=== PATIENT | female | born 1990 | race Hispanic/Latino ===

== ENCOUNTER 2018-02-08 22:45 | Inpatient (IN) | payer MEDICAID, OTHER ==
[~2018-02-08] VITALS: Ht 165.1 cm; Wt 66.2 kg
[2018-02-08] MEDS ORDERED: TORADOL IM STA (23:34)
[2018-02-08] MEDS ORDERED: ZOFRAN ODT SL STA (23:34)
--- NOTE | 2018-02-08 23:37 | ER.PDOC ---
General Chief Complaint: Abdomen Pain Stated Complaint: VOMITING Time seen by MD: 23:35 Source: patient Exam Limitations: no limitations History of Present Illness Initial Comments Upper abdominal pain for past few days Severity/Quality: moderate Radiation: no radiation Associated Symptoms: nausea/vomiting Exacerbated by: nothing Relieved By: nothing Allergies: Coded Allergies: Penicillins (Verified Allergy, Unknown, Rash, 02/08/18) Vital Signs First Vital Signs Date Time Temp Pulse Resp B/P (MAP) Pulse Ox O2 Delivery O2 Flow Rate FiO2 02/08/18 22:59 98.2 116 16 100 Room Air 98.2 Last Vital Signs Date Time Temp Pulse Resp B/P (MAP) Pulse Ox O2 Delivery O2 Flow Rate FiO2 02/08/18 23:03 98.2 98.2 02/08/18 22:59 116 16 100 Room Air Past Medical History Surgical History: no surgical history LMP (females 10-50): this week Social History Smoking: cigarettes, less than 1 pack/day Alcohol Use: rarely Drug Use: marijuana Constitutional: no symptoms reported EENTM: no symptoms reported Respiratory: no symptoms reported Cardiovascular: no symptoms reported Gastrointestinal: see HPI Genitourinary: no symptoms reported All Other Systems: Reviewed and Negative Physical Exam General Appearance: No Apparent Distress, WD/WN HEENT: PERRL/EOMI, Normal ENT Inspection, TMs Normal, Pharynx Normal Neck: Non-Tender, Full Range of Motion, Supple, Normal Inspection Respiratory: chest non-tender, lungs clear, normal breath sounds, no respiratory distress, no accessory muscle use Cardiovascular: Normal Peripheral Pulses, Regular Rate, Rhythm, No Edema, No Gallop, No JVD, No Murmur Gastrointestinal: Normal Bowel Sounds, No Organomegaly, No Pulsatile Mass, Tenderness (upper abdomen) Back: Normal Inspection, No CVA Tenderness, No Vertebral Tenderness Extremities: Normal Range of Motion, Non-Tender, Normal Inspection, No Pedal Edema, No Calf Tenderness, Normal Capillary Refill, Pelvis Stable Neurologic/Psychiatric: retanned leather roller II-XII NML as Tested, No Motor/Sensory Deficits, Alert, Normal Mood/Affect, Oriented x 3 Skin: Normal Color, Warm/Dry Lymphatic: No Adenopathy EKG/XRAY/CT/US CT Comments: Nothing acute on CT abdomen/pelvis Course Vitals & review Data Vital Sign - Last 24 Hours 8/9/18 8/9/18 22:59 23:03 Temp 98.2 98.2 98.2 98.2 Pulse 116 Resp 16 Pulse Ox 100 O2 Delivery Room Air Departure Time of Disposition: 00:40 Disposition: 09 ADMITTED INPATIENT Impression: Primary Impression: Acute pancreatitis Condition: Stable Referrals: PCP,UNKNOWN (PCP) PRIMARY CARE PROVIDER Additional Instructions: Admitted to Dr. Fajardo Duration or Time Spent with Pa: 60 mins Problem Qualifiers Primary Impression: Acute pancreatitis Pancreatitis type: unspecified pancreatitis type Acute pancreatitis complication: unspecified Qualified Codes: K85.90 - Acute pancreatitis without necrosis or infection, unspecified SUMIT RICO MD Feb 08, 2018 23:37
[2018-02-08 23:39] LABS: BILIRUBIN,URINE NEGATIVE (NEGATIVE); UROBILINOGEN,URINE NORMAL (NEGATIVE)
[2018-02-08] MEDS ORDERED: TORADOL ONE (23:41)
[2018-02-08] MEDS ORDERED: ZOFRAN ODT ONE (23:41)
[2018-02-08 23:46] LABS: APPEARANCE,URINE CLEAR (CLEAR); UA COLOR ORANGE (YELLOW)
[2018-02-08 23:47] LABS: BASOPHIL % 0.2 % (0.0-0.2); EOSINOPHIL # 0.1 10^3/uL (0.0-0.2); EOSINOPHIL % 0.4 % (0.0-5.0); HEMOGLOBIN 14.1 g/dL (12.0-15.0); LYMPHOCYTES % 7.4 % (24.0-44.0); MEAN CELL HGB CONCENTRATION 34.6 g/dL (33-37); MEAN CORP VOLUME 92.5 fL (78-100); MEAN PLATELET VOLUME 11.1 fL (7.8-11.0); MONOCYTES % 7.5 % (5.0-12.0); NEUTROPHIL # 11.5 10^3/uL (1.8-7.7); NEUTROPHILS % 84.4 % (41.0-85.0); RED CELL DISTRIBUTION WIDTH 13.2 % (11.5-14.5); WHITE BLOOD CELL 13.6 10^3/uL (4.5-11.0)
[2018-02-09] VITALS (8 sets, daily range): BP systolic 119–143; BP diastolic 82–94
[2018-02-09 00:03] LABS: CALCIUM 9.8 mg/dL (8.4-10.5); CARBON DIOXIDE 22.9 mmol/L (20.0-32)
--- NOTE | 2018-02-09 00:26 | DIREP ---
PROCEDURE:CT ABDOMEN/PELVIS W/O CONTRAST COMPARISON:None. INDICATIONS:Upper abdominal pain TECHNIQUE:Axial images were created through the abdomen and pelvis without intravenous contrast material. No oral contrast was administered. Sagittal and coronal reconstructions were performed from source images. FINDINGS: LUNG BASES:Normal. No visible pulmonary or pleural disease. LIVER:Normal. No significant liver lesions are identified. BILIARY:Normal. No visible dilatation or calcification. PANCREAS:Normal. No lesion, fluid collection, ductal dilatation, or atrophy. SPLEEN:Normal. No enlargement or focal lesion. ADRENALS:Normal. No mass or enlargement. URINARY TRACT:Normal. No focal lesions or hydronephrosis. AORTA/VASCULAR:Normal. No aneurysm. RETROPERITONEUM:Normal. No mass or adenopathy. BOWEL/MESENTERY:Thickening of the wall of the ascending and transverse colon ABDOMINAL WALL:Normal. No mass or hernia. PELVIC ORGANS:Normal. No visible mass. Pelvic organs appropriate for patient age. BONES:Normal for age. No bony lesion or acute fracture. OTHER:Negative. CONCLUSION: 1. Thickening of the wall of the ascending and transverse colon. This may be artifactual secondary to lack of distention with contrast. However, ischemia, infection, and inflammatory bowel disease are in the differential diagnosis. 2. Normal appearing noncontrast appearance of the pancreas. No calcified gallstone Dictated by: Honorio Ling Jr. on 02/09/2018 at 00:19 AM
[2018-02-09] MEDS ORDERED: D5W-1/2 NS/KCL 20MEQ 1,000 ML IV STA (00:43)
--- NOTE | 2018-02-09 00:43 | PRM.ACF1 ---
Date and Time Date and Time Time: 00:42 Admission Criteria Forms PANCREATITIS Clinical Indications for Admission to Inpatient Care (nikolski/check or initial the applicable condition/ criteria) Admission is indicated for 1 or more of the following (1)(2)(3)(4)(5)(6)(7): [ x]I. Acute pancreatitis[A] as indicated by 2 or MORE of the following: [ ]1. Abdominal pain (eg, epigastric, left upper quadrant) [ ]2. Serum amylase or serum lipase greater than 3 times the upper limit of normal [ ]3. Characteristic findings from abdominal imaging (eg, pancreatic inflammation, pancreatic necrosis, peripancreatic fluid collection)[B] [ ]II. Pancreatitis (acute or chronic ) requiring inpatient care as indicated by 1 or more of the following [ ]1. Inability to maintain oral hydration [ ]2. Evidence of infection (eg, fever, peripancreatic abscess) [ ]A. Fever indicated by 1 or more of the following (1)(2)(3): [ ]a. Core (eg, rectal) [A] temperature greater than or equal to 100 degrees F (37.8 degrees C) in an adult [ ]b. Core (eg, rectal) [A] temperature greater than or equal to 100.4 degrees F (38 degrees C) in an child [ ]c. Oral temperature [B] greater than or equal to 99.3 degrees F (37.4 degrees C) in an adult [ ]d. Oral temperature [B] greater than or equal to 99.7 degrees F (37.6 degrees C) in a child [ ]e. Unadjusted tympanic membrane temperature [C] greater than or equal to 98.6 degrees F(37 degrees C) in an adult [ ]f. Unadjusted tympanic membrane temperature [C] greater than or equal to 99 degrees F (37.2 degrees C) in a child [ ]3. Severe pain requiring acute inpatient management as indicated by 1 or more of the following (1)(2)(3): [ ]a. Continuous or frequent (eg, every 2 to 4 hours) parenteral analgesics required[A] [ ]b. Necessity (ie, alternative approaches not effective) for analgesic regimen that can only be performed or initiated in inpatient setting [ ]4. Hemodynamic instability indicated by 1 or more of the following (1)(2)(3)(4)(5)(6)(7): [ ]a. Vital sign abnormality not readily corrected by appropriate treatment within 12 to 24 hours indicated by 1 or more of the following: [ ]i. Tachycardia that persists despite appropriate treatment (eg, volume repletion, treatment of pain, treatment of underlying cause) as indicated by 1 or more of the following (1)(2): [ ]a. Heart rate greater than 100 beats per minute in adult or child age 6 years or older [ ]b. Heart rate greater than 115 beats per minute in child 3 to 5 years of age [ ]c. Heart rate greater than 125 beats per minute in child 1 or 2 years of age [ ]d. Heart rate greater than 130 beats per minute in 6 to 11 months of age [ ]e. Heart rate greater than 150 beats per minute in infant 3 to 5 months of age [ ]f. Heart rate greater than 160 beats per minute in infant 1 or 2 months of age [ ]ii. Hypotension that persists despite appropriate treatment (eg, volume repletion, treatment of underlying cause) as indicated by ALL of the following 1 )(2)(3)(4) [ ]a. Not patient baseline (eg, healthy adult with low SBP) or intentional therapeutic goal (eg, low SBP as treatment goal in heart failure ) [ ]b. Low blood pressure as indicated by 1 or more of the following: [ ]1. New onset of SBP less than 90 mm Hg in adult or child 10 years or older [ ]2. New decrease in SBP greater than 40 mm Hg in adult or child 10 years or older [ ]3. Mean arterial pressure[A] less than 70 mm Hg in adult or child 10 years or older [ ]4. New onset of SBP less than sum of 70 mm Hg plus twice patient's age in years in child 1 to 9 years of age [ ]5. New onset of SBP less than 70 mm Hg in 1 to 11 months of age [ ]Iii. Orthostatic vital sign changes that persist despite appropriate treatment (eg, volume repletion) as indicated by 1 or more of the following (1): [ ]a. Fall in SBP of 20 mm Hg or more 1 to 3 minutes after patient sits or stands from recumbent position [ ]b. Fall in DBP of 10 mm Hg or more 1 to 3 minutes after patient sits or stands from recumbent position [ ]b. Vital sign abnormality that is severe indicated by 1 or more of the following: [ ]i. Inadequate perfusion indicated by 1 or more of the following: [ ]a. Lactic acidosis (greater than 2 mmol/L) [ ]b. Other metabolic acidosis (arterial pH less than 7.35) not otherwise explained [ ]c. New abnormal capillary refill (greater than 3 seconds) [ ]d. Reduced urine output as indicated by 1 or more of the following (1)(2): [ ]A. Urine output less than 0.5 mL/kg/hour for 6 hours in adult [ ]B. Anuria (urine output less than 0.1 mL/kg/hour) for 4 hours in any age group [ ]C. Reduced output in child as indicated by 1 or more of the following (3): [ ]1. Urine output less than 2 mL/kg/hour for 6 hours in infant younger than 2 years [ ]2. Urine output less than 1 mL/kg/hour for 6 hours in child younger than 12 years [ ]3. Urine output less than 0.75 mL/kg/hour for 6 hours in adolescent younger than 18 years [ ]e. Altered mental status indicated by 1 or more of the following (1)(2)(3)(4): [ ]A. Confusional state (eg, disorientation, difficulty following commands, deficit in attention) [ ]B. Lethargy (awake or arousable, but with drowsiness; reduced awareness of self and environment) [ ]C. Obtundation (ie, arousable with strong stimuli, lessened interest in environment, slowed responses to stimulation) [ ]D. Stupor (may be arousable but patient does not return to normal baseline level of awareness) [ ]E. Coma (not arousable) [ ]f. Myocardial Ischemia [ ]ii. Mean arterial pressure[A] less than 60 mm Hg [ ]iii. Mean arterial pressure[A] less than 70 mm Hg after 30 minutes of appropriate treatment (eg, fluid resuscitation) [ ]iv. IV inotropic or vasopressor medication required to maintain adequate blood pressure or perfusion [ ]v. Sustained heart rate greater than 120 beats per minute in adult or child 6 years or older[B] [ ]5. Hypoxemia as indicated by 1 or more of the following (1): [ ]A. Previously normal respiratory status with 1 or more of the following: [ ]i. Arterial oxygen saturation (SaO2) less than 90% or arterial partial pressure of oxygen (PO2) less than 60 mm Hg (8.0 kPa) on room air[A] [ ]ii. Oxygen required to keep SaO2 greater than 90% or PO2 greater than 60 mm Hg (8.0 kPa) [ ]B. Chronic lung disease with 1 or more of the following (2): [ ]i. New requirement for supplemental oxygen to keep SaO2 at baseline or acceptable level [ ]ii. Required supplemental oxygen performable only in acute inpatient setting [ ]6. Acute renal failure as indicated by new onset of 1 or more of the following (1)(2)(3)(4)(5)(6)(7): [ ]a. 3-fold rise in serum creatinine from baseline [ ]b. Serum creatinine greater than 4 mg/dL (354 micromoles/L) with acute rise greater than 0.5 mg/dL (44.2 micromoles/L) [ ]c. Reduction of more than 75% in estimated glomerular filtration rate from baseline. eGFR - Adult Calculator [ ]d. Estimated glomerular filtration rate less than 35 mL/min/ 1.73m2 (0.59 mL/sec/1.73m2) in child younger than 18 years. eGFR - Pediatric Calculator [ ]e. Cessation of urine output indicated by ALL of the following : [ ]i. Adequate volume status [ ]ii. Inadequate urine output as indicated by 1 or more of the following: [ ]a. Urine output less than 0.3 mL/kg/hour for 24 hours [ ]b. Anuria (urine output less than 0.1 mL/kg/hour) for 12 hours [ ]7. Severe electrolyte abnormalities indicated by ALL of the following (1)(2)(3): [ ]A. Electrolytes and associated findings are not as expected for patient baseline or acceptable treatment effects. [ ]B. Severe abnormalities indicated by 1 or more of the following: [ ]1. Sodium less than 130 mEq/L (mmol/L) (new) [ ]2. Sodium less than 135 mEq/L (mmol/L) with 1 or more of the following: [ ]i. Uncorrectable (to near normal or chronic baseline) after trial of outpatient and emergency treatment [ ]ii. Altered mental status [ ]iii. Seizures [ ]iv. Severe medical etiology requiring inpatient management (eg, heart failure, hypovolemia) [ ]3. Sodium greater than 155 mEq/L (mmol/L) [ ]4. Sodium greater than 150 mEq/L (mmol/L) with 1 or more of the following: [ ]i. Uncorrectable (to near normal or chronic baseline) with outpatient and emergency treatment [ ]ii. Altered mental status [ ]iii. Seizures [ ]iv. Severe medical etiology (eg, hypovolemia, diabetes insipidus) [ ]5. Potassium less than 2.5 mEq/L (mmol/L) despite outpatient and emergency treatment [ ]6. Potassium less than 3 mEq/L (mmol/L) with 1 or more of the following: [ ]i. Weakness [ ]ii. Cardiac abnormality (eg, arrhythmia, conduction disturbance) [ ]iii. Cardiac ischemia [ ]iv. Ileus [ ]v. Ongoing medical cause requiring inpatient management ( eg, acute renal wasting or SIADH) [ ]vi. Other severe symptoms [ ]7. Potassium greater than 6.5 mEq/L (mmol/L) [ ]8. Potassium greater than 5 mEq/L (mmol/L) with 1 or more of the following: [ ]i. Uncorrectable (to near normal or chronic baseline) with outpatient and emergency treatment [ ]ii. Severe ECG findings[A] [ ]iii. Acute worsening of renal failure (creatinine greater than 2.5 mg/dL (221 micromoles/L) or significant elevation for age and size) [ ]iv. Severe weakness [ ]v. Severe medical etiology (eg, hemolysis, infection, drug overdose) [ ]9. Calcium less than 7 mg/dL (1.75 mmol/L) despite outpatient and emergency treatment (5) [ ]10. Calcium less than 8 mg/dL (2 mmol/L) with significant symptoms or findings (eg, Altered mental status, muscle spasms, seizures, breathing difficulty, cardiac abnormality (eg, arrhythmia or conduction disturbance)) (5) [ ]11. Calcium greater than 14 mg/dL (3.5 mmol/L) (5) [ ]12. Calcium greater than 12 mg/dL (3 mmol/L) with 1 or more of the following (5): [ ]i. Uncorrectable (to near normal or chronic baseline) with outpatient and emergency treatment [ ]ii. Dehydration that is severe or persistent as indicated by 1 or more of the following (3)(6)(7)(8): [ ]A. Clinical findings of severe dehydration as indicated by 1 or more of the following: [ ]a. Acute loss of weight from baseline (5% of body weight in adults, 9% in pediatric patients) [ ]b. Hemodynamic instability [ ]c. Acute renal failure [ ]d. Serum sodium greater than 150 mEq/L (mmol/L) [ ]B. Dehydration that is persistent as indicated by ALL of the following: [ ]a. Oral rehydration therapy not tolerated or insufficient to adequately correct dehydration [ ]b. Appropriate intravenous treatment (eg, fluids) does not readily correct dehydration (ie, after 12 to 24 hours of treatment) [ ]iii. Significant symptoms or findings (eg, Altered mental status, cardiac abnormality (eg, arrhythmia, conduction disturbance), malignant etiology requiring inpatient treatment) [ ]13. Phosphorus less than 1 mg/dL (0.32 mmol/L) [ ]14. Phosphorus less than 1.5 mg/dL (0.48 mmol/L) with 1 or more of the following: [ ]i. Patient unresponsive to outpatient and emergency treatment [ ]ii. Significant symptoms or findings (eg, weakness, Altered mental status, breathing difficulty, seizures, rhabdomyolysis) [ ]15. Phosphorus greater than 10 mg/dL (3.2 mmol/L) [ ]16. Phosphorus greater than 4.5 mg/dL (1.45 mmol/L) (new) with 1 or more of the following: [ ]i. Severe medical etiology (eg, crush injury, acute renal failure) [ ]ii. Associated hypocalcemia with significant findings (eg , neurologic symptoms, Altered mental status, muscle spasms, seizures, breathing difficulty, cardiac abnormality (eg, arrhythmia, conduction disturbance)) [ ]17. Magnesium less than 1 mg/dL (0.41 mmol/L) [ ]18. Magnesium less than 1.5 mg/dL (0.62 mmol/L) with 1 or more of the following: [ ]i. Patient unresponsive to outpatient and emergency treatment [ ]ii. Associated hypocalcemia with significant findings (eg , Altered mental status, muscle spasms, seizures, breathing difficulty, cardiac abnormality (eg, arrhythmia, conduction disturbance )) [ ]iii. Associated hypokalemia (potassium less than 3 mEq/L ( mmol/L)) with risk of arrhythmia [ ]19. Magnesium greater than 4 mEq/L (2 mmol/L) [ ]20. Magnesium greater than 2.5 mEq/L (1.25 mmol/L) with significant symptoms or findings (eg, weakness, Altered mental status, cardiac abnormality (eg, arrhythmia, conduction disturbance), breathing difficulty, severe medical etiology (eg, renal failure, hypovolemia)) [ ]21. Uric acid greater than 20 mg/dL (1190 micromoles/L) (9) [ ]22. Uric acid greater than 8 mg/dL (476 micromoles/L) with significant symptoms or findings of tumor lysis syndrome (eg, creatinine greater than 1.5 times upper limit of normal, cardiac abnormality (eg, arrhythmia, conduction disturbance), seizure) (9) The original [employer] content created by [employer] has been revised. The portions of the content which have been revised are identified through the use of italic text or in bold,and [facility] has neither reviewed nor approved the modified material.All other unmodified content is copyright [facility]. Please see references footnoted in the original [employer] edition 2017 SUMIT R[place] MD Feb 09, 2018 00:43
[2018-02-09] MEDS ORDERED: D5W-1/2 NS/KCL 20MEQ 1,000 ML ONE (00:51)
[2018-02-09] MEDS ORDERED: ZOFRAN IV PRN (01:00)
--- NOTE | 2018-02-09 01:01 | NUR ---
PAIN MED PATIENT STATES SHE WANTS TO HOLD OFF ON PAIN MEDICATION
--- NOTE | 2018-02-09 01:14 | NUR ---
REPORT TO [facility] GIVEN TO AMY JUAREZ
[2018-02-09] MEDS: MORPHINE SULFATE IV PRN ×3 (01:39→09:37)
--- NOTE | 2018-02-09 01:39 | NUR ---
Morphine 3mg iv given for pain 01/09
[2018-02-09] MEDS ORDERED: LORA-447 PO (02:18)
--- NOTE | 2018-02-09 05:27 | NUR ---
Morphine 3mg iv given for pain 02/09
--- NOTE | 2018-02-09 06:52 | NUR ---
REPORT REPORT RECEIVED FROM Matthew BOSS LVN. PT RESTING IN BED ON RIGHT SIDE. PT STATES 'I WAS UNABLE TO SLEEP ALL NIGHT, THE PAIN IS GETTING BETTER NOW, BUT I THINK I AM GOING TO NEED THE DR TO ORDER MY ATIVAN THAT I TAKE AT HOME.' PT INFORMED THAT DR WOULD BE NOTIFIED WHEN HE GETS TO FLOOR. PT VERBALIZED THAT SHE WOULD BE FINE UNTIL THEN. PT DENIED ANY OTHER NEEDS OR CONCERNS. CALL LIGHT IN REACH, SIDE RAILS UP, BED IN LOWEST POSITION. WILL MONITOR.
--- NOTE | 2018-02-09 06:56 | NUR ---
REPORT TO JUDAH REYES
--- NOTE | 2018-02-09 07:51 | NUR ---
DR DR GUTIERREZ NOTIFIED OF PT HOME MED REGIMEN WHILE ON THE FLOOR.
--- NOTE | 2018-02-09 08:05 | NUR ---
US ULTRASOUND AT BEDSIDE. PT STATING PAIN IS 7/10 AND PT VERBALIZED THAT SHE KNEW SHE COULD NOT GET PAIN MEDS YET. PT DENIED ANY NEEDS OR CONCERNS AT THIS TIME. CALL LIGHT AND PERSONAL ITEMS IN REACH, SIDE RAILS UP X2, BED IN LOWEST POSITION. WILL MONITOR.
--- NOTE | 2018-02-09 09:03 | DIREP ---
PROCEDURE:US ABDOMEN LIMITED(SINGLE ORGAN-QUAD) COMPARISON:[facility], CT, CT ABD/PELVIS W/O, 02/08/2018, 11:41 PM. INDICATIONS:Pancreatitis FINDINGS: PANCREAS:Head: 2.1 cm; Body: 0.8 cm; Tail: 1.8 cm CBD:0.2 cm GALLBLADDER:0.2 cm RIGHT KIDNEY:10.0 x 4.9 x 4.9 cm PANCREAS:Normal pancreas. LIVER:Normal hepatic parenchymal architecture. No focal hepatic lesion is identified. Normal directional flow in the portal vein. GALLBLADDER:Normal appearing gallbladder without evidence for gallbladder wall thickening or pericholecystic fluid. BILIARY:There is no biliary ductal dilatation. RIGHT KIDNEY:Normal. No hydronephrosis. OTHER:Negative. No ascites is identified. CONCLUSION:Normal examination Dictated by: HPRA Physician on 02/09/2018 at 08:35 AM ld
[2018-02-09] MEDS: ATIVAN PO SCH ×2 (09:36→20:07)
--- NOTE | 2018-02-09 09:47 | NUR ---
DR DR. GUTIERREZ AT BEDSIDE UPDATING PT ON POC. DR GUTIERREZ CHANGING DIET TO CLEAR LIQUIDS AT THIS TIME. DR GUTIERREZ STATES THAT PT CAN BE SL TO AMBULATE IN THE GUTIERREZ, AND PT VERBALIZED THAT SHE WOULD NOT GO OUTSIDE TO SMOKE. WILL MONITOR.
--- NOTE | 2018-02-09 10:00 | NUR ---
DISCHARGE PLAN CASE MANAGEMENT VISITED WITH PT ABOUT DISCHARGE NEED AND PLAN. LIVES AT HOME WITH ROOMMATE IN [place]. DOES NOT HAVE CHILDREN OR DEPENDENTS. WORKS FOR [employer] IN [place] A [employer]. INDEPENDENT OF ADLS. ANNIKA BRADLEY ALSO SPOKE WITH PT IN REGARDS TO INSURANCE CONCERNS. CONTACT INFORMATION PROVIDED FOR PT FOR CASE MANAGEMENT AND BUSINESS OFFICE GIVEN IF NEEDED AFTER DISCHARGE. FATHER LIVES IN [place]. DISCHARGE GOAL IS TO DISCHARGE TO FATHER'S HOME IN [place] FOR A FEW DAYS BEFORE DRIVING SELF BACK TO [place]. WILL CONTINUE TO FOLLOW DISCHARGE NEEDS.
--- NOTE | 2018-02-09 10:14 | NUR ---
HIDA SCAN INFORMED BY DR GUTIERREZ THAT PT WILL HAVE HIDA SCAN PERFORMED. PT CAN NOT HAVE ANY PAIN MEDICATIONS AND WILL REMAIN NPO.
[2018-02-09 10:25] LABS: BASOPHIL % 0.2 % (0.0-0.2); EOSINOPHIL # 0.4 10^3/uL (0.0-0.2); EOSINOPHIL % 4.1 % (0.0-5.0); HEMOGLOBIN 13.2 g/dL (12.0-15.0); LYMPHOCYTES # 3.3 10^3/uL (1.0-4.8); LYMPHOCYTES % 33.1 % (24.0-44.0); MEAN CELL HGB 32.4 pg (26-34); MEAN CELL HGB CONCENTRATION 34.3 g/dL (33-37); MEAN CORP VOLUME 94.4 fL (78-100); MONOCYTES % 10.4 % (5.0-12.0); NEUTROPHIL # 5.2 10^3/uL (1.8-7.7); RED CELL DISTRIBUTION WIDTH 13.3 % (11.5-14.5)
[2018-02-09] MEDS ORDERED: TYLENOL PO PRN (10:30)
--- NOTE | 2018-02-09 10:30 | NUR ---
NPO PT INFORMED OF NPO STATUS AND THAT SHE CAN NOT HAVE ICE CHIPS. PT ALSO INFORMED THAT SHE CAN NOT HAVE PAIN MEDICATION UNTIL AFTER THE SCAN HAS BEEN COMPLETED. WILL MONITOR.
--- NOTE | 2018-02-09 11:00 | NUR ---
AMBULATING PT AMBULATING IN HALLWAY AT THIS TIME. PT OFF THE UNIT TO GO TO [facility] TO VISIT WITH HER FATHER. IV SALINE LOCKED BY Fercho MCDONALD CNA. WILL MONITOR.
--- NOTE | 2018-02-09 11:54 | NUR ---
DR BRENDA GUTIERREZ INFORMED THAT PT REQUESTING NICOTINE PATCH. DR GUTIERREZ ORDERED NICOTINE PATCH 14 G, QDAILY.
[2018-02-09] MEDS: NICOTINE 14MG PATCH TD SCH (12:13)
--- NOTE | 2018-02-09 12:13 | NUR ---
PATCH NICOTINE PATCH APPLIED TO PT LEFT UPPER BACK. PT VERBALIZED UNDERSTANDING OF MEDICATION AND USE. PT DENIED ANY NEEDS OR CONCERNS AT THIS TIME. PT REMAINS NPO FOR PROCEDURE. CALL LIGHT AND PERSONAL ITEMS IN REACH, SIDE RAILS UP X2, BED IN LOWEST POSITION. WILL MONITOR.
--- NOTE | 2018-02-09 12:53 | NUR ---
RADIOLOGY PT OFF UNIT WITH RADIOLOGY VIA WHEELCHAIR. PT IV SALINE LOCKED. WILL MONITOR FOR RETURN.
--- NOTE | 2018-02-09 15:16 | NUR ---
BACK TO FLOOR PT BACK TO ROOM FROM RADIOLOGY. PT C/O OF NAUSEA AND PAIN IN THE EPIGASTRIC AREA. PT INFORMED THAT IT IS TIME FOR PAIN MEDICATION AND NAUSEA MEDICATION. SEE EMAR.
[2018-02-09] MEDS: DILAUDID IV PRN (15:26)
[2018-02-09] MEDS: ZOFRAN IV PRN (15:26)
--- NOTE | 2018-02-09 15:26 | NUR ---
MEDICATION PRN NAUSEA AND PAIN MEDIATION GIVEN, SEE EMAR. PT STATES THAT SHE VOIDED AND VOMITED WHILE NURSE PULLING MEDS. PT VERBALIZED UNDERSTANDING OF MEDICATIONS BEING GIVEN. PT DENIED ANY OTHER NEEDS OR CONCERNS. CALL LIGHT AND PERSONAL ITEMS IN REACH. BED IN LOWEST POSITION, SIDE RAILS UP X2. WILL MONITOR.
--- NOTE | 2018-02-09 15:36 | DIREP ---
PROCEDURE:NM GALLBLADDER SCAN/SWANN COMPARISON:None. INDICATIONS:Pancreatitis TECHNIQUE:After obtaining the patient's consent, radiopharmaceutical was injected and images obtained sequentially for one hour. PHARMACEUTICAL(S):6.3 mCi Tc-99m MAURO derivative. FINDINGS: LIVER:Normal. BILIARY DUCTS:Normal. Visualized at 10 minutes. GALLBLADDER:Normal. Visualized at 25 minutes INTESTINE:Normal. Visualized at 60 minutes EJECTION FRACTION:45 %. Normal is greater than 50% at 15-20 minutes, EF between 35%-50% is equivocal. 8 oz of Ensure Plus was administered, resulting in mild cramping and severe nausea CONCLUSION:No evidence of cystic or common bile duct obstruction. Borderline ejection fraction Dictated by: Honorio Lares MD on 02/09/2018 at 03:28 PM
--- NOTE | 2018-02-09 17:07 | NUR ---
AMBULATING PT AMBULATING OFF THE UNIT WITH FAMILY AT THIS TIME.
--- NOTE | 2018-02-09 18:45 | NUR ---
Report Received report from Yamini Sinclair LVN
[2018-02-09] MEDS: NORCO 5MG PO PRN ×2 (20:07→23:53)
--- NOTE | 2018-02-09 22:33 | HPH ---
ADMIT DATE: 02/09/2018 CHIEF COMPLAINT: Abdominal pain. HISTORY OF PRESENT ILLNESS: The patient is a 27-year-old woman with a past medical history significant for tobacco abuse, occasional marijuana use and alcohol use, who recently came down here from [place]. She is complaining over the last couple of days, some upper abdominal pain. She complains of some vomiting. She denied any diarrhea. She denied any fever or chills. She has not been on recent antibiotics. Initial workup in ER per ER physician report there was concern for gallstones. There was no evidence of gallbladder disease on CT. She did have a history of worsening nausea and some pain when eating. She states she had a gallbladder problem when she was 5 years old and again at 15 years old. PAST MEDICAL HISTORY: Includes tobacco abuse, marijuana use, occasional alcohol use, anxiety disorder. PAST SURGICAL HISTORY: She denies any surgeries. ALLERGIES: States she is allergic to PENICILLIN. HOME MEDICATION LIST: Only includes Ativan 0.5 mg twice a day. SOCIAL HISTORY: She lives in [place], lives at home, has a positive marijuana, alcohol and tobacco use history. FAMILY HISTORY: Negative for early coronary artery disease or diabetes. REVIEW OF SYSTEMS: CARDIAC: Denies chest pain or shortness of breath. PULMONARY: No cough, sputum production or pleuritic chest pain. GASTROINTESTINAL: Positive for some nausea, abdominal pain and some vomiting. No diarrhea or constipation. All else negative in 10 point review of system except as in HPI. PHYSICAL EXAMINATION: VITAL SIGNS: Upon arrival to the ER, height 165.1 cm, weight 66.2 kilograms, temperature 98.2, pulse 79, respiratory rate 16, blood pressure 133/87, O2 saturation 99% on room air. GENERAL: She is alert, in no acute distress at time of exam. HEENT: Pupils equal, round and reactive to light. Sclerae are anicteric. Oropharynx is clear. Mucous membranes are moist. NECK: Supple, no lymphadenopathy. CARDIOVASCULAR: At time of exam is regular rate and rhythm. LUNGS: Clear bilaterally. No wheezing. ABDOMEN: Soft. Bowel sounds are present. She is tender to palpation in left lower quadrant and right upper quadrant. No rebound or guarding. EXTREMITIES: No cyanosis, clubbing or edema. NEUROLOGIC: Grossly nonfocal. LABORATORY DATA: CBC: White count 13.6, hemoglobin 14.1, platelets 231. Differential: 84% neutrophils, 7% lymphocytes, 7% monocytes. Sodium 136, potassium 3.0, chloride 99, CO2 is 23, BUN is 10, creatinine is 1, glucose 106, calcium is 9.8, total bilirubin is 1.9, AST 28, ALT is 47, alkaline phosphatase 73, total protein 8.4, albumin is 4.4, lipase of 3679. IMAGING STUDIES: CT abdomen and pelvis did reveal some thickening of the ascending and transverse colon, which may be due to poor distention, but she had also had an abdominal ultrasound, which did not reveal any significant abnormalities. HIDA scan was performed, which did show a slightly reduced ejection fraction of 45%. ASSESSMENT AND PLAN: The patient is a 27-year-old woman here with likely gallbladder disease, gallbladder induced pancreatitis with biliary dyskinesia, history of alcohol, tobacco and marijuana use. 1. We will give IV fluid hydration, appropriate p.r.n. pain and nausea medications. We will start on clear liquid diet. Surgery consult depending on resolution of her pancreatitis. We will consult General Surgery for assessment. 2. Appropriate p.r.n. pain and nausea medication. 3. Encourage ambulation. 4. DVT prophylaxis will be with Lovenox. 5. Broadband Engineer on smoking cessation. Nicotine patch ordered. Time spent on 02/09/2018 is 45 minutes. This plan was discussed with the patient. She is her own decision maker. She does understand and concur with plans. Leno Fajardo MD DR: ANNE MARIE/robert JOB# [id number] ANDRE
[2018-02-10 00:01] VITALS: BP 129/83
[2018-02-10 04:10] VITALS: BP 129/96
[2018-02-10] MEDS: NORCO 5MG PO PRN ×2 (04:30→09:10)
[2018-02-10 05:14] LABS: BASOPHIL % 0.3 % (0.0-0.2); EOSINOPHIL # 0.7 10^3/uL (0.0-0.2); EOSINOPHIL % 7.6 % (0.0-5.0); HEMOGLOBIN 13.1 g/dL (12.0-15.0); LYMPHOCYTES # 2.1 10^3/uL (1.0-4.8); LYMPHOCYTES % 23.8 % (24.0-44.0); MEAN CELL HGB 32.3 pg (26-34); MEAN CELL HGB CONCENTRATION 33.4 g/dL (33-37); MEAN CORP VOLUME 96.6 fL (78-100); MEAN PLATELET VOLUME 11.5 fL (7.8-11.0); MONOCYTES # 0.6 10^3/uL (0.3-0.8); MONOCYTES % 7.3 % (5.0-12.0); NEUTROPHIL # 5.3 10^3/uL (1.8-7.7); NEUTROPHILS % 60.9 % (41.0-85.0); RED CELL DISTRIBUTION WIDTH 13.3 % (11.5-14.5); WHITE BLOOD CELL 8.7 10^3/uL (4.5-11.0)
[2018-02-10 06:04] LABS: CALCIUM 8.8 mg/dL (8.4-10.5); CARBON DIOXIDE 23.2 mmol/L (20.0-32)
--- NOTE | 2018-02-10 06:54 | NUR ---
Report Report given to Marilee Sharp RN
[2018-02-10] MEDS: ATIVAN PO SCH ×2 (09:09→20:33)
[2018-02-10] MEDS: NICOTINE 14MG PATCH TD SCH (09:11)
[2018-02-10] MEDS: LOVENOX SQ SCH (09:11)
[2018-02-10 09:24] VITALS: BP 125/86
[2018-02-10] MEDS: ZOFRAN IV PRN ×2 (10:36→20:33)
[2018-02-10] MEDS: DILAUDID IV PRN ×3 (10:37→20:08)
--- NOTE | 2018-02-10 10:49 | NUR ---
Report Assumed care of patient after bedside report received from Jojo CALIX. Patient sleeping left side upon first contact. C/O abdominal pain, no signicant relief with oral pain medication. This RN gave patient IV dose of dilaudid and Zofran, with better results, as evidenced by patient able to rest. Alert and oriented, able to make her needs known. Abdomen pain worse with PO intake. Currently patient is NPO per DR. Fajardo, until surgeon sees patient.
[2018-02-10 12:00] VITALS: BP 140/98
[2018-02-10 16:20] VITALS: BP 138/98
--- NOTE | 2018-02-10 18:18 | PRM.CONS ---
Consultation Reason for Consult: Reason for Consultation: Abdominal pain History of Present Illness History of Patient Comments The patient is a 27 year old female admitted over the weekend for upper abdominal pain. Patient lives in [place] and is visiting some one in the area. She says that her first attack of pancreatitis was at the age of 5. Then she had an attack at the age of [age]. This is at least her 3rd attack. She is unable to recall any work up that was done in the past. She thinks that with her attack of pancreatitis at the age of 15, she was told that she had a stone blocking the tube. But there is no documentation of it since it was such a long time ago. Today her pain is less severe and she is tolerating clear liquids. She is still requiring pain medications but less. Objective Vitals and I/O Vital Sign - Last 24 Hours 02/09/18 02/09/18 02/10/18 02/10/18 20:16 20:55 00:01 04:10 Temp 98.6 98.4 98.1 98.6 98.4 98.1 Pulse 78 77 72 Resp 18 18 18 B/P (MAP) 138/94 (109) 129/83 (98) 129/96 (107) Pulse Ox 99 100 99 O2 Delivery Room Air Room Air Room Air Room Air 02/10/18 02/10/18 02/10/18 02/10/18 09:21 09:24 12:00 16:20 Temp 98.3 97.2 98.2 98.3 97.2 98.2 Pulse 77 89 111 Resp 16 16 20 B/P (MAP) 125/86 (99) 140/98 (112) 138/98 (111) Pulse Ox 100 100 100 O2 Delivery Room Air Room Air Room Air Room Air Intake and Output 02/09/18 02/09/18 02/10/18 15:00 23:00 07:00 Intake Total 595 ml 240 ml 220 ml Output Total 100 ml Balance 495 ml 240 ml 220 ml General: Alert, Oriented X3, Cooperative, mild distress HEENT: Mucous membr. moist/pink Neck: Supple, No thyromegaly Lungs: Normal air movement Heart: Regular rate Abdomen: Soft Extremities: No clubbing Skin: No rashes Neuro: Normal gait Psych/Mental Status: Mental status NL Medication Reconciliation Scheduled Lorazepam (Ativan), 0.5 MG PO BID, (Reported) Subjective Subjective Date: Feb 10, 2018 Time: 17:30 Subjective Past history is significant for ETOH and marijuana use. Patient History: FH: cirrhosis 33 FATHER VTE VTE Risk Total Score: 0 VTE Risk Score VTE Risk: Score 0-1 = Low Risk (Aggressive mobilization; early ambulation; no VTE prophylaxis required) Score 2: Moderate Risk (Intermittent/Pneumatic Compression Device OR Lovenox/Heparin/Coumadin) Score 3-4: High Risk (Intermittent/Pneumatic Compression Device AND Lovenox/Heparin/Coumadin) Score > or =5: Highest Risk (Intermittent/Pneumatic Compression Device AND Lovenox/Heparin/Coumadin) Antico:Hep/LMWH/Coum/Xarelto: Yes Mechanical device ordered: No Plan Assessment Acute pancreatitis-mild [place] criteria [address] CT shows normal pancreas US no gallstones HIDA scan 45% EF Plan 1) Non-operative management. 2) Due to long history dating childhood, it might be a consideration to do ERCP or MRCP as an outpatient to look at anatomy of the pancreatic head (annular pancreas) or ductal anomaly. 3) Clear liquid diet. 4) OK to discharge when tolerating PO and pain under control with oral meds. 5) Avoid ETOH and fatty food. PAIGE STUART MD Feb 10, 2018 18:18
--- NOTE | 2018-02-10 19:09 | NUR ---
Report Received report from Tiffanie Rao
[2018-02-10 20:32] VITALS: BP 147/105
[2018-02-11] VITALS (7 sets, daily range): BP systolic 120–154; BP diastolic 88–110
[2018-02-11] MEDS: DILAUDID IV PRN ×5 (00:36→21:19)
--- NOTE | 2018-02-11 08:03 | PRM.PN ---
Progress Note Subjective Date: Feb 11, 2018 Time: 08:00 Physician Notes: s/p acute pancreatitis. Feels a little better. Had some pain last night. Needed pain medication. Tolerating clear liquids. Objective Review IO, Exams,& Results Problems Acute/Active Problems: (1) Acute pancreatitis Vital Signs Date Time Temp Pulse Resp B/P (MAP) Pulse Ox O2 Delivery O2 Flow Rate FiO2 02/11/18 07:29 98.1 83 16 136/93 (107) 100 Room Air 98.1 Intake and Output 02/11/18 07:00 Intake Total 120 ml Balance 120 ml Intake Oral 120 ml # Voids 2 Laboratory Tests Test 02/09/18 10:17 02/10/18 04:52 White Blood Count 10.0 10^3/uL 8.7 10^3/uL Red Blood Count 4.08 10^6/uL 4.06 10^6/uL Hemoglobin 13.2 g/dL 13.1 g/dL Hematocrit 38.5 % 39.2 % Mean Corpuscular Volume 94.4 fL 96.6 fL Mean Corpuscular Hemoglobin 32.4 pg 32.3 pg Mean Corpuscular Hemoglobin Concent 34.3 g/dL 33.4 g/dL Red Cell Distribution Width 13.3 % 13.3 % Platelet Count 215 10^3/uL 211 10^3/uL Mean Platelet Volume 11.0 fL 11.5 fL Neutrophils (%) (Auto) 52.0 % 60.9 % Lymphocytes (%) (Auto) 33.1 % 23.8 % Monocytes (%) (Auto) 10.4 % 7.3 % Neutrophils # (Auto) 5.2 10^3/uL 5.3 10^3/uL Lymphocytes # (Auto) 3.3 10^3/uL 2.1 10^3/uL Monocytes # (Auto) 1.0 10^3/uL 0.6 10^3/uL Absolute Immature Granulocyte (auto 0.02 10^3 u/L 0.01 10^3 u/L Eosinophils % 4.1 % 7.6 % Basophils % 0.2 % 0.3 % Basophils # 0.0 10^3/uL 0.0 10^3/uL Eosinophil Count 0.4 10^3/uL 0.7 10^3/uL Total Bilirubin 1.6 mg/dL 1.3 mg/dL Direct Bilirubin 0.30 mg/dL Indirect Bilirubin 1.30 Aspartate Amino Transf (AST/SGOT) 31 U/L 123 U/L Alanine Aminotransferase (ALT/SGPT) 44 U/L 130 U/L Alkaline Phosphatase 56 U/L 54 U/L Total Protein 7.1 g/dL 6.8 g/dL Albumin 3.6 g/dL 3.4 g/dL Amylase Level 300 U/L Lipase 2250 U/L 1236 U/L Percent Immature Gran (Cell Imm) 0.20 % 0.10 % Sodium Level 138 mmol/L Potassium Level 3.5 mmol/L Chloride Level 104.0 mmol/L Carbon Dioxide Level 23.2 mmol/L Anion Gap 14.3 Blood Urea Nitrogen 7 mg/dL Creatinine 0.87 mg/dL Estimated GFR () 93.1 BUN/Creatinine Ratio 8.0 Glucose Level 86 mg/dL Calcium Level 8.8 mg/dL Globulin 3.4 Current Medications Medications (Trade) Dose Ordered Sig/Hanane PRN Reason Start Time Stop Time Status Last Admin Acetaminophen (Tylenol) 1,000 mg Q6H PRN PAIN MILD 02/09/18 10:30 03/11/18 10:29 Acetaminophen/ Hydrocodone Bitart ([place] 5mg) 1 ea Q4H PRN PAIN 02/09/18 10:30 03/11/18 10:29 02/10/18 09:10 Enoxaparin Sodium (Lovenox) 40 mg DAILY 02/10/18 09:00 03/12/18 08:59 02/10/18 09:11 Hydromorphone HCl (Dilaudid) 0.5 mg Q4H PRN PAIN SEVERE 02/09/18 10:30 03/11/18 10:29 02/11/18 05:52 Lorazepam (Ativan) 0.5 mg BID 02/09/18 09:00 03/11/18 08:59 02/10/18 20:33 Nicotine (Nicotine 14mg Patch) 1 each DAILY 02/09/18 12:30 03/11/18 12:29 02/10/18 09:11 Ondansetron HCl (Zofran) 4 mg Q4H PRN NAUSEA / VOMITING 02/09/18 10:30 03/11/18 10:29 02/10/18 20:33 Heart: Regular rate Abdomen: Soft, Other (Mild upper abdominal tenderness. ) Lungs: Normal air movement Skin: No rashes Assessment & Plan: Assessment Resolving pancreatitis. Plan Follow labs. Stay on clear liquids. OK to advance if pain is less. PAIGE STUART MD Feb 11, 2018 08:03
[2018-02-11] MEDS: ATIVAN PO SCH ×2 (09:21→21:04)
[2018-02-11] MEDS: NICOTINE 14MG PATCH TD SCH (09:22)
[2018-02-11] MEDS: LOVENOX SQ SCH (09:25)
--- NOTE | 2018-02-11 10:03 | NUR ---
Assumed care Assumed care of patient after report received from Jojo CALIX, at shift change. Alert and oriented, able to make her needs known. Patient ambulated out of her room. Patient states, "I feel better." Patient noted to tolerate clear liquids. See assessment as documented.
[2018-02-11] MEDS: ZOFRAN IV PRN (14:37)
--- NOTE | 2018-02-11 18:40 | NUR ---
Report Received report from Tiffanie Restrepo RN
[2018-02-11 20:16] LABS: CALCIUM 9.5 mg/dL (8.4-10.5); CARBON DIOXIDE 24.2 mmol/L (20.0-32)
[2018-02-12] MEDS: DILAUDID IV PRN ×3 (01:20→13:30)
[2018-02-12 04:50] VITALS: BP 132/90
[2018-02-12] MEDS: NORCO 5MG PO PRN (05:34)
--- NOTE | 2018-02-12 05:49 | PRM.PN ---
Progress Note Subjective Date: Feb 12, 2018 Time: 05:45 Physician Notes: s/p acute pancreatitis Says she has more pain than yesterday. Objective Review IO, Exams,& Results Problems Acute/Active Problems: (1) Acute pancreatitis Vital Signs Date Time Temp Pulse Resp B/P (MAP) Pulse Ox O2 Delivery O2 Flow Rate FiO2 02/12/18 04:50 98.0 63 16 132/90 (104) 100 Room Air 98.0 Intake and Output 02/12/18 07:00 Intake Total 1182 ml Balance 1182 ml Intake Oral 1182 ml # Voids 4 Laboratory Tests Test 02/11/18 19:44 Sodium Level 137 mmol/L Potassium Level 4.1 mmol/L Chloride Level 101.0 mmol/L Carbon Dioxide Level 24.2 mmol/L Glucose Level 102 mg/dL Blood Urea Nitrogen 7 mg/dL Creatinine 0.91 mg/dL Calcium Level 9.5 mg/dL Anion Gap 15.9 Estimated GFR () 88.4 BUN/Creatinine Ratio 7.0 Current Medications Medications (Trade) Dose Ordered Sig/Hanane PRN Reason Start Time Stop Time Status Last Admin Acetaminophen (Tylenol) 1,000 mg Q6H PRN PAIN MILD 02/09/18 10:30 03/11/18 10:29 Acetaminophen/ Hydrocodone Bitart ([place] 5mg) 1 ea Q4H PRN PAIN 02/09/18 10:30 03/11/18 10:29 02/12/18 05:34 Enoxaparin Sodium (Lovenox) 40 mg DAILY 02/10/18 09:00 03/12/18 08:59 02/11/18 09:25 Hydromorphone HCl (Dilaudid) 0.5 mg Q4H PRN PAIN SEVERE 02/09/18 10:30 03/11/18 10:29 02/12/18 01:20 Lorazepam (Ativan) 0.5 mg BID 02/09/18 09:00 03/11/18 08:59 02/11/18 21:04 Nicotine (Nicotine 14mg Patch) 1 each DAILY 02/09/18 12:30 03/11/18 12:29 02/11/18 09:22 Ondansetron HCl (Zofran) 4 mg Q4H PRN NAUSEA / VOMITING 02/09/18 10:30 9/9/18 10:29 02/11/18 14:37 Heart: Regular rate Abdomen: Soft, Other (Mild upper abdominal tenderness. ) Lungs: Normal air movement Skin: No rashes Assessment & Plan: Assessment Acute pancreatitis Plan 1) Follow labs 2) Consider starting IVF and slow with diet. 3) Dr. Dumont will take over care when he returns today PAIGE STUART MD Feb 12, 2018 05:49
[2018-02-12] MEDS ORDERED: BENADRYL PO ONE (06:00)
[2018-02-12] MEDS: ATIVAN PO SCH (08:43)
[2018-02-12] MEDS: LOVENOX SQ SCH (08:44)
[2018-02-12] MEDS: NICOTINE 14MG PATCH TD SCH (08:44)
[2018-02-12 08:50] VITALS: BP 129/90
[2018-02-12] MEDS ORDERED: LACTATED RINGERS 1,000 ML IV SCH (10:00)
[2018-02-12] MEDS ORDERED: SENSORCAINE-MPF 0.25% VIAL ONE (10:08)
[2018-02-12] MEDS ORDERED: SODIUM CHLORIDE IRR BAG 2,000 ML ONE (10:08)
[2018-02-12] MEDS ORDERED: SODIUM CHLORIDE IR ONE (10:08)
--- NOTE | 2018-02-12 10:35 | NUR ---
OR AT BEDSIDE FOR TRANSFER OF PATIENT.
[2018-02-12] MEDS ORDERED: VERSED ONE (10:44)
[2018-02-12] MEDS ORDERED: NEOSTIGMINE ONE (10:44)
[2018-02-12] MEDS ORDERED: ZOFRAN ONE (10:44)
[2018-02-12] MEDS ORDERED: TORADOL ONE ×2 (10:44→16:22)
[2018-02-12] MEDS ORDERED: SUBLIMAZE ONE (10:44)
[2018-02-12] MEDS ORDERED: ZEMURON IV ONE (10:44)
[2018-02-12] MEDS ORDERED: DECADRON ONE (10:44)
[2018-02-12] MEDS ORDERED: DIPRIVAN IV ONE (10:45)
[2018-02-12] MEDS ORDERED: DILAUDID ONE (10:45)
[2018-02-12] MEDS ORDERED: NS 100ML 100 ML IV ONE (10:57)
[2018-02-12] MEDS ORDERED: MEFOXIN ONE (10:57)
[2018-02-12] MEDS ORDERED: MEFOXIN 1 GM in NS 100ML 100 ML IV SCH (11:00)
[2018-02-12] MEDS ORDERED: LACTATED RINGERS 1,000 ML ONE (11:21)
[2018-02-12] MEDS ORDERED: PROTONIX IV IV ONE (11:49)
[2018-02-12 12:08] VITALS: BP 143/89
[2018-02-12 12:23] VITALS: BP 152/97
[2018-02-12] MEDS ORDERED: ZOFRAN IV PRN (12:30)
[2018-02-12] MEDS ORDERED: PHENERGAN IV PRN (12:30)
[2018-02-12] MEDS ORDERED: ULTRAM PO PRN (12:30)
[2018-02-12] MEDS ORDERED: DILAUDID IV PRN (12:30)
[2018-02-12] MEDS ORDERED: VENTOLIN IH PRN (12:30)
[2018-02-12] MEDS ORDERED: BENADRYL IV PRN (12:30)
[2018-02-12 12:38] VITALS: BP 143/70
[2018-02-12] MEDS: ZOFRAN IV PRN (12:39)
--- NOTE | 2018-02-12 13:00 | NUR ---
PT ARRIVED BACK FROM OR VIA STRETCHER. CLEAR LIQUIDS PROVIDED. EDUCATED PT ON THE IMPORTANCE OF AMBULATING AND PAIN CONTROL. PT VERBALIZED UNDERSTANDING. CALL LIGHT WITHIN REACH, SIMEON CALF SCD'S ON, BED IN LOW POSITION. NO OTHER NEEDS DETERMINED AT THIS TIME.
[2018-02-12] MEDS: TORADOL IV PRN (16:24)
--- NOTE | 2018-02-12 18:02 | OPH ---
DATE OF SURGERY: PREOPERATIVE DIAGNOSIS: Symptomatic biliary colic with history of previous cholelithiasis. 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 SURGEON: Tam Dumont DO INFECTION CONTROL COORDINATOR: OR staff. ANESTHESIA: General by Miles Bradford CRNA plus local used on the field. PROCEDURES PERFORMED: Laparoscopic-assisted cholecystectomy. SPECIMENS: Gallbladder to path. ESTIMATED BLOOD LOSS: 13 mL. COUNTS: At the completion of the case, counts were correct per OR staff. DESCRIPTION OF PROCEDURE: As follows: The patient is a very pleasant 27-year-old female known from previous evaluation. Prior to procedure, informed consent was obtained. At the time of procedure, she was taken to the operative suite and placed in supine position. After time-out was completed, general anesthesia was obtained. Her abdomen was prepped and draped in normal fashion. Local was used to anesthetize the periumbilical region. Incision was created and 5 mm trocar was introduced into the abdomen with Endo camera visualization. Once in the abdomen, pneumoperitoneum was induced to the level of 14 mmHg. Next, camera visualization, a 5 mm trocar was placed laterally in right upper quadrant, one was placed in the midline at the epigastrium and another was placed in the midline towards the right upper quadrant. The gallbladder was retracted exposed. Attention directed to the infundibulum. Careful dissection was made to isolate what proves to be the cystic duct with associated cystic artery. The lymph node was noted to be fairly anterior. It was mobilized by exposure with the cystic duct exposed. It was clipped twice proximally and once distally and divided sharply. It is noted that it appears to contain the cystic duct with a single lumen and cystic artery within the clips. The remainder of the connective tissues were divided using blunt dissection and electrocautery. Once the gallbladder was freed from the proximal attachments it was removed from liver bed using electrocautery. Once completely removed, it was placed in EndoCatch bag, removed through a fresh trocar and passed to backtable. Spilled bowel was identified, it is suctioned. The area was copiously was irrigated and inspected. Any bleeding identified was controlled with electrocautery. The clips placed on the cystic artery were inspected and the remainder of the gallbladder fossa was carefully inspected and noted to have meticulous hemostasis. With good hemostasis noted, irrigation and suctioned, closure was pursued. Under camera visualization, all 4 trocar sites were localized. The camera was placed in the superior trocar and 3 inferior trocar was removed with camera visualization. There was no bleeding. Superior trocar was removed with camera visualization through the trocar tract. Once all camera was removed, the sites were irrigated and closure was pursued. Four skin incisions were closed with 4-0 Monocryl. The patient was cleaned. Steri-Strips and bandage applied. Drapes removed. The patient tolerated this procedure well. There were no acute complications noted. Tam Dumont DO DR: JOSE DE JESUS/robert JOB# [id number] CC: Leno Fajardo MD MTDD
--- NOTE | 2018-02-13 03:13 | PNH ---
DATE: 02/11/2018 SUBJECTIVE: She continues to be symptomatic with oral intake. She continues to complain of pain and nausea. No other acute changes overnight. OBJECTIVE: VITAL SIGNS: T-max last 24 hours is 99.0, pulse of 83, respiration rate of 16, blood pressure 154/110, O2 saturation 100% on room air. GENERAL: She is alert, in no acute distress at time of exam. HEENT: Pupils equal, round, reactive to light. Sclerae are anicteric. Oropharynx is clear. Mucous membranes are moist. NECK: Supple, no lymphadenopathy. CARDIOVASCULAR: At time of exam is regular rate and rhythm. LUNGS: Clear bilaterally. ABDOMEN: Soft. Bowel sounds are present. EXTREMITIES: No cyanosis, clubbing or edema. NEUROLOGIC: Grossly nonfocal. LABORATORY DATA: Sodium 137, potassium 4.1, chloride 101, CO2 is 24, BUN 7, creatinine 0.9, glucose 102, calcium is 9.5. ASSESSMENT AND PLAN: The patient is a 27-year-old woman here with symptomatic biliary dyskinesia with recent resolving pancreatitis. 1. We will continue IV fluid hydration. 2. We will get a General Surgery consult 3. DVT prophylaxis with Lovenox. Time spent on 02/11/2018 is 25 minutes. Leno Fajardo MD DR: ANNE MARIE/robert JOB# [id number] ANDRE
--- NOTE | 2018-02-13 04:25 | PNH ---
DATE: 02/10/2018 SUBJECTIVE: She still has nausea and right upper quadrant pain with any oral intake. She has tried clear liquids and states she has pain with that. No other acute changes. OBJECTIVE: VITAL SIGNS: T-max last 24 hours is 98.6, pulse 111, respiratory rate is 20, blood pressure 138/98, O2 saturation 100% on room air. GENERAL: She is alert, in no acute distress at time of exam. HEENT: Pupils equal, round, reactive to light. Sclerae are anicteric. Oropharynx is clear. Mucous membranes are moist. NECK: Supple, no lymphadenopathy. CARDIOVASCULAR: At time of exam was regular rate and rhythm. LUNGS: Clear bilaterally. No wheezing. ABDOMEN: Soft. Bowel sounds are present, slightly tender to palpation in the epigastric and right upper quadrant region. No rebound or guarding. EXTREMITIES: No cyanosis, clubbing or significant edema. NEUROLOGIC: Grossly nonfocal. LABORATORY DATA: CBC: White count 8.7, hemoglobin 13.1 and platelets 211. Differential: 61% neutrophils, 24% lymphocytes, 7% monocytes. Sodium 138, potassium 3.5, chloride 104, CO2 is 23, BUN 7, creatinine 0.87, glucose 86, calcium is 8.8, total bilirubin is 1.3, AST 123, ALT is 130, alkaline phosphatase 54, total protein 6.8, albumin 3.4, lipase 1236. ASSESSMENT AND PLAN: 1. The patient is a 27-year-old woman here with resolved pancreatitis with mild hepatitis, not otherwise specified, likely secondary to gallbladder disease with biliary dyskinesia is symptomatic. 2. Continue clear liquid diet as tolerated. 3. IV fluid hydration. 4. Appropriate p.r.n. pain and nausea medication. 5. Encourage ambulation. 6. Deep venous thrombosis prophylaxis with Lovenox. Time spent on 02/10/2018 is 25 minutes. Leno Fajardo MD DR: ANNE MARIE/robert JOB# [id number]
--- NOTE | 2018-02-13 05:32 | PNH ---
DATE: CHIEF COMPLAINT: Chronic cholecystitis. HISTORY OF PRESENT ILLNESS: This is a 27-year-old female who reports a significant story of intermittent symptoms with onset at age 5. She had biliary problems that would come and go, including multiple episodes of pancreatitis including one at age 5, one at age 15. Apparently, she had a similar episode last year, for which she had 2 endoscopies. She reports that at home, she has modified her diet significantly, but she most mornings has an episode of nausea and vomiting with bilious emesis. She did have positive pancreatitis in this admission. She reports her pain is a 5/10 to 6/10 this morning with posterior radiation. PAST MEDICAL HISTORY: She has some PTSD after her time in the service. PAST SURGICAL HISTORY: Includes EGD times 2 in 2017. ALLERGIES: PENICILLIN. HOME MEDICATIONS: Ativan 0.5 mg p.o. b.i.d. SOCIAL HISTORY: Positive smoke tobacco for 7 years. She reports rare alcohol use; however, she did have 2 beers last week; normally, she is a nondrinker. She does report approximately one-half ounce per month of marijuana use where she lives in [place]. FAMILY HISTORY: Mother is living, age 53; she has bipolar, schizophrenia and that is all that is known of her. Father is living at age 61, has cirrhosis and hypertension. REVIEW OF SYSTEMS: SEASONAL ALLERGIES: She denies any seasonal allergies, runny nose or cough. ENDOCRINE: She does not have thyroid disease or diabetes. CARDIOVASCULAR: No chest pain or trouble breathing at this time. PULMONARY: She has no wheezing or history of asthma. ABDOMEN: As per HPI. MUSCULOSKELETAL: No pain, stiffness, swelling in muscle, joints or bones. NEUROLOGIC: She denies any seizure or blackouts. PSYCHIATRIC: She denies any depression, stress or anxiety. She reports she has known PTSD from her time in the service. PHYSICAL EXAMINATION: VITAL SIGNS: This is a currently afebrile female, temperature 98.0, pulse 60, respiratory rate of 18, blood pressure of 129/90. HEENT: Normocephalic, atraumatic. [place] mucous membranes. NECK: Supple and soft. Trachea is midline. No JVD or thyromegaly. HEART: Has a regular rate and rhythm. LUNGS: Clear to auscultation anteriorly bilaterally. ABDOMEN: The bowel sounds are positive, soft. She has tenderness in the epigastrium and right upper quadrant, some tenderness to the mid back on both sides. EXTREMITIES: Show positive radial pulses bilaterally, positive dorsal pedal pulse bilaterally. NEUROLOGIC: She has no acute findings. Cranial nerves 2 through 12 grossly intact. SKIN: Temperature is warm and dry. LABORATORY DATA: On admission white count 13.6, improved to 8.7; hemoglobin 13.1, platelet count 211 on admission. Chemistry shows lipase on admission was 3679; it has improved to 1236. Total bilirubin was 1.9 that has improved to 1.3 with elevated liver enzymes. Her urine hCG is negative. Specific gravity on admission was 1.010. Her H. pylori is negative. IMAGING: Her CT scan is nonspecific. Ultrasound shows no stones or ductal dilatation. HIDA scan shows EF of 45%, but is symptomatic. SURGICAL ASSESSMENT: 1. Symptomatic biliary colic. 2. History of tetrahydrocannabinol use. 3. History of tobacco use. PLAN: 1. The patient is seen and examined. The chart is reviewed. 2. I have discussed with the patient extensively her options, and she is clear in her desire for surgery. We will plan for laparoscopic-assisted cholecystectomy today when possible. Tam Dumont DO DR: JOSE DE JESUS/robert JOB# [id number] CC: Leno Fajardo MD MTDD
[2018-02-13 07:10] VITALS: BP 137/77
[2018-02-13] MEDS ORDERED: PROM12.55 PO (08:00)
[2018-02-13] MEDS ORDERED: ACET-685 PO (08:00)
--- NOTE | 2018-02-13 08:19 | PRM.DC ---
Discharge Summary Date of Discharge: Feb 13, 2018 Reason for Visit: Abdominal pain Patient History: FH: cirrhosis 31 FATHER History Present Illness: (1) Biliary dyskinesia Status: Resolved ICD Code: K82.8 - Other specified diseases of gallbladder SNOMED: 409959827 (2) Anxiety disorder Status: Chronic ICD Code: F41.9 - Anxiety disorder, unspecified SNOMED: 256970949 (3) Acute pancreatitis Status: Resolved ICD Code: K85.90 - Acute pancreatitis without necrosis or infection, unspecified SNOMED: 683048765 General: Alert, Oriented X3, Cooperative, No acute distress HEENT: PERRLA, EOMI Neck: Supple, No JVD Lungs: Clear to auscultation, Normal air movement Heart: Regular rate, Normal S1, Normal S2 Abdomen: Normal bowel sounds, Soft, No tenderness Extremities: No clubbing, No cyanosis Neuro: Normal speech, Strength at 5/5 X4 ext, Sensation intact, Cranial nerves 3-12 NL Psych/Mental Status: Mood NL Results(Labs/Rad) Laboratory Tests Test 02/11/18 19:44 Sodium Level 137 mmol/L Potassium Level 4.1 mmol/L Chloride Level 101.0 mmol/L Carbon Dioxide Level 24.2 mmol/L Glucose Level 102 mg/dL Blood Urea Nitrogen 7 mg/dL Creatinine 0.91 mg/dL Calcium Level 9.5 mg/dL Anion Gap 15.9 Estimated GFR () 88.4 BUN/Creatinine Ratio 7.0 Scheduled Acetaminophen With Codeine (Tylenol With Codeine #3 Tablet), 1 EACH PO Q4HR Lorazepam (Ativan), 0.5 MG PO BID, (Reported) Promethazine Hcl (Promethazine Hcl), 12.5 MG PO Q6HR Sepsis Evaluation @ Discharge Vital Sign - Last 24 Hours 02/08/18 02/08/18 22:59 23:03 Temp 98.2 98.2 98.2 98.2 Pulse 116 Resp 16 Pulse Ox 100 O2 Delivery Room Air Course Sepsis Screening Results: Posi: NEGATIVE Sepsis Qualifier/Stage: NO DEFINITE RISK Vitals & review Data Vital Sign - Last 24 Hours 02/08/18 02/08/18 22:59 23:03 Temp 98.2 98.2 98.2 98.2 Pulse 116 Resp 16 Pulse Ox 100 O2 Delivery Room Air Plan Discharge Date: Feb 13, 2018 Dicharge DX: 1. Acute pancreatitis, 2. Biliary dyskinesia - symptomatic, 3. Anxiety Discharge Disposition: Stable Plan Medications per discharge list Diet as tolerated Activity as tolerated with no heavy lifting until cleared by Surgery at follow up appointment Follow up with Surgery as scheduled Discharge plans discussed with patient, she is her own decision maker and does understand and concur with plans Time spent 25 minutes Problem Qualifiers (1) Anxiety disorder: Anxiety disorder type: generalized anxiety disorder Qualified Codes: F41.1 - Generalized anxiety disorder (2) Acute pancreatitis: Pancreatitis type: unspecified pancreatitis type Acute pancreatitis complication: unspecified Qualified Codes: K85.90 - Acute pancreatitis without necrosis or infection, unspecified WARNER GUTIERREZ MD Feb 13, 2018 08:18
[2018-02-13] MEDS: LOVENOX SQ SCH (08:32)
[2018-02-13] MEDS: PROTONIX IV IV SCH ×2 (08:32→08:34)
[2018-02-13] MEDS: NICOTINE 14MG PATCH TD SCH (08:33)
[2018-02-13] MEDS: TORADOL IV PRN (08:33)
--- NOTE | 2018-02-13 09:50 | NUR ---
DISCHARGE PT HAS BEEN DISCHARGED. TROCHANTER SITES X4 TO ABDOMEN; STERI STRIPS IN PLACE WITH BANDAID, NO REDNESS OR EDEMA NOTED. SALINE LOCK DC;D, CATHETER INTACT, NO REDNESS OR EDEMA PRESENT. DISCHARGE INSTRUCTIONS GIVEN; PAPERS SIGNED. PATIENT TAKEN DOWNSTAIRS IN WHEELCHAIR; HAS HER OWN VEHICLE HERE AND WANTED TO GET OUT OF WHEELCHAIR AT DOOR.
[2018-02-13 10:00] VITALS: BP 137/77
--- NOTE | 2018-02-14 03:31 | PNH ---
DATE: 02/12/2018 SUBJECTIVE: She is doing well after surgery, laparoscopic cholecystectomy. She is ambulating well, tolerating clear liquids well. No other acute events overnight. OBJECTIVE: VITAL SIGNS: T-max last 24 hours 98.3, pulse 64, respiratory rate is 18, blood pressure 143/70, O2 saturation 98% on room air. GENERAL: She is alert, in no distress at time of exam. HEENT: Pupils equal, round and reactive to light. Sclerae are anicteric. Oropharynx is clear. Mucous membranes are moist. NECK: Supple, no lymphadenopathy. CARDIOVASCULAR: At time of exam is regular rate and rhythm. LUNGS: Clear bilaterally. ABDOMEN: Soft. Bowel sounds are present, nontender to palpation. EXTREMITIES: No cyanosis, clubbing or significant edema. NEUROLOGIC: Grossly nonfocal. ASSESSMENT AND PLAN: The patient is a 27-year-old woman here with symptomatic biliary dyskinesia, now status post laparoscopic cholecystectomy with resolved pancreatitis. 1. Continue diet and advance as tolerated. 2. Ambulate frequently. 3. Appropriate p.r.n. pain and nausea medication. Time spent on 02/12/2018 is 25 minutes. Leno Fajardo MD DR: ANNE MARIE/robert JOB# [id number]
== END 2018-02-13 09:50 | disposition home or self-care (01) | DRG 263 ==
LOC: ER 22:45 → MS 02-09 00:31
PROVIDERS: ADMIT Internal Medicine; ATTEND Internal Medicine
PROC: 0FT44ZZ Resection of Gallbladder, Percutaneous Endoscopic Approach (ICD-10-PCS; principal; 2018-02-12 11:45)
DX: K80.10 Calculus of gallbladder with chronic cholecystitis without obstruction (principal); K85.90 Acute pancreatitis without necrosis or infection, unspecified; K75.9 Inflammatory liver disease, unspecified; F12.90 Cannabis use, unspecified, uncomplicated; F17.210 Nicotine dependence, cigarettes, uncomplicated; F41.9 Anxiety disorder, unspecified; K21.9 Gastro-esophageal reflux disease without esophagitis; F43.10 Post-traumatic stress disorder, unspecified; K82.8 Other specified diseases of gallbladder; Z88.6 Allergy status to analgesic agent; Z88.0 Allergy status to penicillin; Z83.79 Family history of other diseases of the digestive system; Z82.49 Family history of ischemic heart disease and other diseases of the circulatory system; Z81.8 Family history of other mental and behavioral disorders; Z71.6 Tobacco abuse counseling
CPT/HCPCS: 36415; 47562; 74176; 76705; 78227; 80048; 80053; 80076; 81000; 81025; 82150; 83690; 85025; 86677; 88304; 96372; 99285; C9113; J1100; J1650; J1885; J2250; J2270; J2405; J2710; J3010; J3490; J7030; J7050; J7070; J7120; Q0162; Q0163; A9537; J0694

== ENCOUNTER 2019-03-05 17:45 | Emergency (ER) | payer MEDICAID ==
[2019-03-05 17:45] VITALS: BP 162/102
[~2019-03-05 17:45] MED LIST: ACET-685 PO; LORA-447 PO; PROM12.57 PO
[2019-03-05] MEDS ORDERED: DUONEB 0.5 MG-3 MG/3 ML SOLN IH STA (17:50)
[2019-03-05] MEDS ORDERED: EPINEPHrine IM STA ×2 (17:50→18:29)
[2019-03-05] MEDS ORDERED: DECADRON IH STA (17:50)
[2019-03-05] MEDS ORDERED: PEPCID ONE (17:51)
[2019-03-05] MEDS ORDERED: EPINEPHrine ONE ×2 (17:51→18:41)
[2019-03-05] MEDS ORDERED: KENALOG-40 ONE (17:51)
[2019-03-05] MEDS ORDERED: DUONEB 0.5 MG-3 MG/3 ML SOLN IH ONE (17:54)
[2019-03-05] MEDS ORDERED: DECADRON ONE (17:54)
--- NOTE | 2019-03-05 17:56 | ER.PDOC ---
General Chief Complaint: Requesting Medical Care Stated Complaint: SOB,ALLERGIC REACTION Time seen by MD: 18:00 Source: patient Exam Limitations: no limitations History of Present Illness Severity: moderate Associated Symptoms: skin rash, throat swollen, mild SOB Identified Cause: yes Exposure: other (AV[place]ADO) Prior symptoms/Treatment: Similar symptoms previous Allergies: Coded Allergies: Penicillins (Verified Allergy, Unknown, Rash, 02/08/18) hydrocodone (Verified Allergy, Unknown, Nausea, 02/12/18) itching Home Meds Active Scripts Promethazine Hcl (PROMETHAZINE HCL) 12.5 Mg Tablet, 12.5 MG PO Q6HR for Nausea for 7 Days, #30 TAB Prov:WARNER GUTIERREZ MD 02/13/18 Acetaminophen With Codeine (TYLENOL WITH CODEINE #3 TABLET) 1 Each Tablet, 1 EACH PO Q4HR for Pain for 7 Days, #30 TAB Prov:WARNER GUTIERREZ MD 02/13/18 Reported Medications Lorazepam (ATIVAN) 0.5 Mg Tablet, 0.5 MG PO BID, TABLET 02/09/18 Past Medical History Surgical History: no surgical history Social History Drug Use: marijuana Reviewed Nursing Reviewed: Vital Signs, Abn. Noted All Other Systems: Reviewed and Negative Physical Exam General Appearance: alert, no distress HEENT: ENT nml inspection, pharynx, voice nml Skin: no rash, nml color, warm/dry Extremities: non-tender, nml ROM, no edema Neck: nml inspection Respiratory: no resp. distress, breath sounds nml CVS: reg. rate & rhythm, heart sounds nml Abdomen: non-tender, no organomegaly NEURO/PSYCH: oriented x 3, CN's nml as tested, motor nml, sensation nml, mood/affect nml Results/Orders Results/Orders Orders - TRI STILES MD Epinephrine (Epinephrine) (03/05/19 17:50) Triamcinolone Acetonide (Kenalog-40) (03/05/19 18:00) Ipratropium/Albuterol Sulfate (Duoneb 0. (03/05/19 17:50) Dexamethasone Sod Phosphate (Decadron) (03/05/19 17:50) Famotidine (Pepcid) (03/05/19 17:51) Triamcinolone Acetonide (Kenalog-40) (03/05/19 17:51) Epinephrine (Epinephrine) (03/05/19 17:51) Ipratropium/Albuterol Sulfate (Duoneb 0. (03/05/19 17:54) Dexamethasone Sod Phosphate (Decadron) (03/05/19 17:54) Famotidine (Pepcid) (03/05/19 17:58) Administered Medications Medications (Trade) Dose Ordered Sig/Hanane Route PRN Reason Start Time Stop Time Status Last Admin Dose Admin Epinephrine HCl (EPINEPHrine) 0.3 mg STAT STAT IM 03/05/19 17:50 03/05/19 17:53 DC 03/05/19 17:57 0.3 MG Triamcinolone Acetonide (Kenalog-40) 40 mg OT ONCE IM 03/05/19 18:00 03/05/19 18:01 DC 03/05/19 17:57 40 MG Course Sepsis Screening Results: Posi: NEGATIVE Sepsis Qualifier/Stage: NO DEFINITE RISK Duration or Total Time Spent w: 60 mins LEVEL 1 SEPSIS INFECTION CRITE: Abdominal Pain LEVEL 2-SIRS (LIST ALL THAT AP: HR>90/min Cardiovascular Evidence: Not Assessed or None Hematologic Evidence: None/Not assessed Hepatic Evidence: None/Not assessed Metabolic Evidence: None/Not assessed Neurological Evidence: None/Not assessed Respiratory Evidence: None/Not assessed Renal Evidence: None/Not assessed Departure Time of Disposition: 18:22 Disposition: 01 HOME, SELF-CARE Impression: Primary Impression: Allergic reaction Condition: Improved Referrals: PCP,UNKNOWN (PCP) PRIMARY CARE PROVIDER Duration or Time Spent with Pa: 17 MIN TRI STILES MD Mar 05, 2019 17:55
[2019-03-05] MEDS ORDERED: PEPCID PO STA (17:58)
[2019-03-05] MEDS ORDERED: KENALOG-40 IM ONE (18:00)
[2019-03-05 18:52] VITALS: BP 141/77
== END 2019-03-05 19:00 | disposition home or self-care (01) ==
LOC: ER 17:45
DX: T78.40XA Allergy, unspecified, initial encounter (principal); F12.90 Cannabis use, unspecified, uncomplicated; Z79.899 Other long term (current) drug therapy; Z88.0 Allergy status to penicillin; Z88.5 Allergy status to narcotic agent; X58.XXXA Exposure to other specified factors, initial encounter
CPT/HCPCS: 94640; 96372; 99284; J0171 ×2; J1100; J3301; J7620

== ENCOUNTER 2019-12-15 13:05 | Emergency (ER) | payer MEDICAID ==
[~2019-12-15] VITALS: Ht 165.1 cm; Wt 68.0 kg
[2019-12-15 13:19] VITALS: BP 146/104
[2019-12-15] MEDS ORDERED: LIDOCAINE 1% VIAL ONE (13:19)
[2019-12-15] MEDS ORDERED: TYLENOL PO STA (13:19)
[2019-12-15] MEDS ORDERED: TRIPLE ANTIBIOTIC OINTMENT TP ONE (13:19)
[2019-12-15] MEDS ORDERED: ADACEL VIAL IM ONE ×2 (13:23→13:30)
[2019-12-15] MEDS ORDERED: TYLENOL PO ONE (13:23)
[2019-12-15 13:24] VITALS: BP 146/104
--- NOTE | 2019-12-15 13:25 | NUR ---
ARRIVAL PT ARRIVED TO ED WITH C/O LACERATION TO HER RIGHT HAND FROM A BROKEN GLASS WHILE DOING DISHES. PT HAS LACERATION APPROXIMATELY 1.5 CM LONG NEAR THUMB NUCKLE AND ANOTHER APPROXIMATLEY 0.5CM ON THE TOP OF HER HAND. BEDSIDE MONITORS APPLIED. VITAL SIGNS STABLE. BED IN LOW LOCKED POSITION.
--- NOTE | 2019-12-15 13:29 | ER.PDOC ---
General Chief Complaint: Requesting Medical Care Stated Complaint: LAC RIGHT HAND Time seen by MD: 13:23 Source: patient Exam Limitations: no limitations History of Present Illness Initial Comments Patient cut hand on broken glass in dishwater. Bleeding controlled. Tetanus is not UTD. Occurred: just prior to arrival Where: home Severity: mild Context: laceration Location of Injury: (R) hand (proximal dorsal thumb joint and dorsal web space) Modifying Factors: pain on movement Allergies: Coded Allergies: Penicillins (Verified Allergy, Unknown, Rash, 02/08/18) hydrocodone (Verified Allergy, Unknown, Nausea, 02/12/18) itching Home Meds Active Scripts Promethazine Hcl (PROMETHAZINE HCL) 12.5 Mg Tablet, 12.5 MG PO Q6HR for Nausea for 7 Days, #30 TAB Prov:WARNER GUTIERREZ MD 02/13/18 Acetaminophen With Codeine (TYLENOL WITH CODEINE #3 TABLET) 1 Each Tablet, 1 EACH PO Q4HR for Pain for 7 Days, #30 TAB Prov:WARNER GUTIERREZ MD 02/13/18 Reported Medications Lorazepam (ATIVAN) 0.5 Mg Tablet, 0.5 MG PO BID, TABLET 02/09/18 Past Medical History Medical History: no pertinent history Surgical History: no surgical history Social History Drug Use: marijuana Review of Systems Constitutional: no symptoms reported EENTM: no symptoms reported Respiratory: no symptoms reported Cardiovascular: no symptoms reported Gastrointestinal: no symptoms reported Musculoskeletal: no symptoms reported Skin: see HPI Physical Exam General Appearance: Alert, No Apparent Distress Wrist: nml inspection 1 - lac 2 - flap lac Neuro: sensation nml Vascular: no vascular compromise Tendons: tendon function nml Forearm/Elbow/Arm: uninjured above wrist Resp/CVS: no resp distress, lungs clear, heart sounds nml, reg. rate & rhythm ED LACERATION WOUND REPAIR # of Wounds/Lacerations Presen: 2 Wound Location & Length (Requi: dorsal web spac flap lac and dorsal proximal joint of thumb Wound Length (cm): 4 Anesthesia: 1% Lidocaine Wound's Depth, Shape: superficial, linear, flap Wound Explored: clean Suture Size/Type: 5:0, ethilon Suture Style: interupted Number of Sutures: 7 Layer Closure?: No Retention sutures placed: No Sterile Dressing Applied?: Yes Results/Orders Results/Orders Orders - LISSET JONES DO Acetaminophen (Tylenol) (12/15/19 13:19) Diph,Pertuss(Acell),Tet Vac/Pf (Adacel V (12/15/19 13:30) Xr Hand Rt (12/15/19 13:20) Lidocaine Hcl (Lidocaine 1% Vial) (12/15/19 13:19) Neomycin/Bacitracin/Polymyxinb (Triple A (12/15/19 13:19) Acetaminophen (Tylenol) (12/15/19 13:23) Diph,Pertuss(Acell),Tet Vac/Pf (Adacel V (12/15/19 13:23) Nitroglycerin (Nitro-Bid) (12/15/19 13:34) Neomycin/Bacitracin/Polymyxinb (Triple A (12/15/19 13:46) Vital Signs Date Time Temp Pulse Resp B/P (MAP) Pulse Ox O2 Delivery O2 Flow Rate FiO2 12/15/19 13:24 99.3 102 14 100 Room Air 12/15/19 13:19 99.3 102 14 12/15/19 13:19 99.3 102 14 100 Administered Medications Medications (Trade) Dose Ordered Sig/Hanane Route PRN Reason Start Time Stop Time Status Last Admin Dose Admin Acetaminophen (Tylenol) 1,000 mg STAT STAT PO 12/15/19 13:19 12/15/19 13:21 DC 12/15/19 13:28 1,000 MG Diphtheria/ Tetanus/Acell Pertussis (Adacel Vial) 0.5 ml ONCE ONCE IM 12/15/19 13:30 12/15/19 13:31 DC 12/15/19 13:28 0.5 ML Departure Time of Disposition: 13:48 Disposition: 01 HOME, SELF-CARE Impression: Primary Impression: Laceration of hand Condition: Improved Patient Instructions: Suture Removal-Brief Referrals: PCP,UNKNOWN (PCP) PRIMARY CARE PROVIDER Additional Instructions: Off work 12/16/2019. Keep wound clean and dry. NO DISHWASHING until sutures are removed and scab has fallen off. Sutures out 10-14 days. Take antibiotics until all gone. Return to ER if you notice any signs of infection. Duration or Time Spent with Pa: 25 min Problem Qualifiers Primary Impression: Laceration of hand Encounter type: initial encounter Foreign body presence: without foreign body Laterality: right Qualified Codes: S61.411A - Laceration without foreign body of right hand, initial encounter LISSET JONES DO Dec 15, 2019 13:29
[2019-12-15] MEDS ORDERED: NITRO-BID TD ONE (13:34)
[2019-12-15] MEDS ORDERED: TRIPLE ANTIBIOTIC OINTMENT TP STA (13:46)
[2019-12-15 14:01] VITALS: BP 144/76
--- NOTE | 2019-12-15 14:43 | DIREP ---
PROCEDURE:XRAY HAND MIN 3 VW-RT COMPARISON:None. INDICATIONS:foreign body FINDINGS: BONES:Normal. JOINTS:Normal. SOFT TISSUES:Normal. OTHER:No opaque foreign bodies are identified. CONCLUSION:Normal exam of the right hand. No evidence of acute bony injury or opaque foreign bodies. Dictated by: Chase Lehman M.D. on 12/15/2019 at 02:41 PM
== END 2019-12-15 14:00 | disposition home or self-care (01) ==
LOC: ER 13:05
DX: S61.411A Laceration without foreign body of right hand, initial encounter (principal); F12.10 Cannabis abuse, uncomplicated; Z79.899 Other long term (current) drug therapy; Z88.5 Allergy status to narcotic agent; Z88.0 Allergy status to penicillin; W25.XXXA Contact with sharp glass, initial encounter; Y93.89 Activity, other specified; Y92.098 Other place in other non-institutional residence as the place of occurrence of the external cause; Y99.8 Other external cause status
CPT/HCPCS: 12002; 73130; 90471; 90715; 99283; J2001

== ENCOUNTER 2019-12-29 11:21 | Emergency (ER) | payer MEDICAID ==
[~2019-12-29] VITALS: Ht 160 cm; Wt 68.0 kg
[2019-12-29] MEDS ORDERED: TRIPLE ANTIBIOTIC OINTMENT TP ONE (11:28)
[2019-12-29 11:32] VITALS: BP 133/81
--- NOTE | 2019-12-29 11:35 | NUR ---
ARRIVAL PATIENT ARRIVED TO ED6 AMBULATORY, HERE FOR SUTURE REMOVAL, WOUND IS CLEAN, NO SIGN OF INFECTION. DOCTOR TRISHA TO ROOM TO SEE PATIENT.
--- NOTE | 2019-12-29 11:37 | NUR ---
SUTURES SUTURES REMOVED BY SYLVIA OMALLEY RN.
--- NOTE | 2019-12-29 11:37 | ER.PDOC ---
General Chief Complaint: Wound Recheck/Suture Removal Stated Complaint: SUTURE REMOVAL Time seen by MD: 11:35 Source: patient Exam Limitations: no limitations History of Present Illness Initial Procedure Done In ER: For suture removal right hand laceration. Previous ED Treatment: laceration repair Symptoms Since Procedure: no complaints Allergies: Coded Allergies: Penicillins (Verified Allergy, Unknown, Rash, 02/08/18) hydrocodone (Verified Allergy, Unknown, Nausea, 02/12/18) itching Home Meds Active Scripts Promethazine Hcl (PROMETHAZINE HCL) 12.5 Mg Tablet, 12.5 MG PO Q6HR for Nausea for 7 Days, #30 TAB Prov:WARNER GUTIERREZ MD 02/13/18 Acetaminophen With Codeine (TYLENOL WITH CODEINE #3 TABLET) 1 Each Tablet, 1 EACH PO Q4HR for Pain for 7 Days, #30 TAB Prov:WARNER GUTEIRREZ MD 02/13/18 Reported Medications Lorazepam (ATIVAN) 0.5 Mg Tablet, 0.5 MG PO BID, TABLET 02/09/18 Past Medical History Medical History: no pertinent history Surgical History: no surgical history Social History Alcohol Use: none Drug Use: none Constitutional: no symptoms reported Respiratory: no symptoms reported Cardiovascular: no symptoms reported Gastrointestinal: no symptoms reported Musculoskeletal: see HPI All Other Systems: Reviewed and Negative Physical Exam General Appearance: alert, no distress Neuro/Vascular/Tendon: no vascular compromise, sensation nml, no tendon injury, nml ROM Skin: no infection (right hand), healing wound Head/ENT: nml inspection, pharynx nml Neck/Back: nml inspection, non-tender, painless ROM Respiratory: chest non-tender, no resp. distress, breath sounds nml CVS: reg. rate & rhythm, heart sounds nml Abdomen: non-tender, no organomegaly Results/Orders Results/Orders Vital Signs Date Time Temp Pulse Resp B/P (MAP) Pulse Ox O2 Delivery O2 Flow Rate FiO2 12/29/19 11:32 98.1 101 20 12/29/19 11:32 98.1 101 20 98 Departure Time of Disposition: 11:36 Disposition: 01 HOME, SELF-CARE Impression: Primary Impression: Encounter for removal of sutures Condition: Stable Referrals: PCP,UNKNOWN (PCP) PRIMARY CARE PROVIDER Additional Instructions: F/U with your PCP as needed Duration or Time Spent with Pa: 10 min SUMIT RICO MD Dec 29, 2019 11:37
== END 2019-12-29 11:38 | disposition home or self-care (01) ==
LOC: ER 11:21
DX: S61.411D Laceration without foreign body of right hand, subsequent encounter (principal); Z79.899 Other long term (current) drug therapy; Z88.5 Allergy status to narcotic agent; Z88.0 Allergy status to penicillin; X58.XXXD Exposure to other specified factors, subsequent encounter
CPT/HCPCS: 99281